=== PATIENT | female | born 1955 | race Caucasian/White ===

== ENCOUNTER → 2016-08-30 | Outpatient (CLI) | payer OTHER | LOC: CT 14:00 | DX: J20.9 Acute bronchitis, unspecified (principal); R93.8 Abnormal findings on diagnostic imaging of other specified body structures; J18.9 Pneumonia, unspecified organism | CPT/HCPCS: 71250 ==

== ENCOUNTER 2020-06-13 17:17 | Observation (INO) | payer MEDICARE ==
[~2020-06-13 17:17] MED LIST: CARAFATE1 GM PO; COZAAR100 MG PO; DAILY MULTIPLE1 EAC1 PO; IBUPROFEN600 MG PO; NORCO 5-325 TA1 EACH PO; NORVASC10 MG PO; PROTONIX40 MG PO; VITAMIN D 40400 UNIT PO; ZOFRAN ODT4 MG PO
[2020-06-13 19:11] LABS: HEMOGLOBIN 14.2 gm/dl (12.3-15.3); RED BLOOD COUNT 4.85 M/UL (4.00-5.10); WHITE BLOOD COUNT 8.2 K/UL (4.5-11.0)
[2020-06-13 19:33] LABS: BUN/CREATININE RATIO 27 (0-10)
[2020-06-14 06:11] LABS: HEMOGLOBIN 12.6 gm/dl (12.3-15.3); WHITE BLOOD COUNT 7.6 K/UL (4.5-11.0)
[2020-06-14 06:25] LABS: RED BLOOD COUNT 4.29 M/UL (4.00-5.10)
[2020-06-14 06:52] LABS: BUN/CREATININE RATIO 26 (0-10)
[2020-06-14] MEDS ORDERED: NITROGLYCERIN0.4 MG SL (11:45)
[2020-06-14] MEDS ORDERED: ECOTRIN81 MG PO (11:45)
== END 2020-06-14 13:47 | disposition home or self-care (01) ==
LOC: ER1 17:17 → CDU 21:42 → MED SURG 4 21:42
PROVIDERS: Physician Assistant Medical; ADMIT Internal Medicine
DX: R07.2 Precordial pain (principal); I10 Essential (primary) hypertension; E78.5 Hyperlipidemia, unspecified; F17.210 Nicotine dependence, cigarettes, uncomplicated; Z88.2 Allergy status to sulfonamides; Z88.8 Allergy status to other drugs, medicaments and biological substances; Z20.822 Contact with and (suspected) exposure to COVID-19
CPT/HCPCS: 36415; 71045; 80048; 80053; 82550; 82553; 83874; 84484; 85025; 85610; 93005; 99285; G0378; U0002

== ENCOUNTER → 2020-07-03 | Outpatient (CLI) | payer MEDICARE ==
[~2020-07-03] MED LIST changes: +ECOTRIN81 MG PO; +NITROGLYCERIN0.4 MG SL
== END ==
LOC: HEART 5 09:03
DX: R06.00 Dyspnea, unspecified (principal); R94.2 Abnormal results of pulmonary function studies; F17.210 Nicotine dependence, cigarettes, uncomplicated
CPT/HCPCS: 94010; 94729

== ENCOUNTER → 2021-04-30 | Outpatient (CLI) | payer MEDICARE | LOC: KOH-I 04-24 13:00 | DX: F17.210 Nicotine dependence, cigarettes, uncomplicated (principal) | CPT/HCPCS: 71271 ==

== ENCOUNTER 2021-12-01 07:59 | Inpatient (IN) | payer MEDICARE ==
[~2021-12-01] VITALS: Ht 167.6 cm; Wt 81.6 kg
[~2021-12-01 07:59] MED LIST changes: +ROXICODONE5 MG PO
[2021-12-01 09:22] LABS: HEMOGLOBIN 10.9 gm/dl (12.3-15.3); RED BLOOD COUNT 4.12 M/UL (4.00-5.10); WHITE BLOOD COUNT 4.6 K/UL (4.5-11.0)
[2021-12-01 09:46] LABS: BUN/CREATININE RATIO 12 (0-10)
[2021-12-01] MEDS ORDERED: ELIQUIS5 MG PO (15:46)
[2021-12-01] MEDS ORDERED: FAMOTIDINE20 MG PO (15:46)
[2021-12-01] MEDS ORDERED: SYMBICORT 80-10.2 GM INH (15:47)
[2021-12-01] MEDS ORDERED: HYDROXYZINE HCL50 MG PO (15:47)
[2021-12-01] MEDS ORDERED: GABAPENTIN400 MG PO (15:47)
[2021-12-01] MEDS ORDERED: SENNA8.6 MG PO (15:55)
[2021-12-02 03:10] LABS: HEMOGLOBIN 10.4 gm/dl (12.3-15.3); RED BLOOD COUNT 3.87 M/UL (4.00-5.10)
[2021-12-02 03:16] LABS: WHITE BLOOD COUNT 2.8 K/UL (4.5-11.0)
[2021-12-02 03:42] LABS: BUN/CREATININE RATIO 17 (0-10)
[2021-12-03 03:27] LABS: HEMOGLOBIN 10.5 gm/dl (12.3-15.3); RED BLOOD COUNT 3.88 M/UL (4.00-5.10)
[2021-12-03 03:28] LABS: WHITE BLOOD COUNT 6.8 K/UL (4.5-11.0)
[2021-12-03 03:45] LABS: BUN/CREATININE RATIO 18 (0-10)
[2021-12-03] MEDS ORDERED: DECADRON6 MG PO (10:54)
[2021-12-03] MEDS ORDERED: LEVOFLOXACIN750 MG PO (10:54)
== END 2021-12-03 18:22 | disposition home or self-care (01) | DRG 177 ==
LOC: ER1 07:59 → CDU 11:03 → M/S 14:33
PROVIDERS: Emergency Medicine; ADMIT Internal Medicine
PROC: 8E0ZXY6 Isolation (ICD-10-PCS; principal; 2021-12-01)
PROC: XW033E5 Introduction of Remdesivir Anti-infective into Peripheral Vein, Percutaneous Approach, New Technology Group 5 (ICD-10-PCS; 2021-12-01)
PROC: 3E0333Z Introduction of Anti-inflammatory into Peripheral Vein, Percutaneous Approach (ICD-10-PCS; 2021-12-01)
DX: U07.1 COVID-19 (principal); J96.01 Acute respiratory failure with hypoxia; D84.9 Immunodeficiency, unspecified; G62.9 Polyneuropathy, unspecified; I10 Essential (primary) hypertension; E78.5 Hyperlipidemia, unspecified; E78.00 Pure hypercholesterolemia, unspecified; Z85.6 Personal history of leukemia; Z82.49 Family history of ischemic heart disease and other diseases of the circulatory system; Z88.8 Allergy status to other drugs, medicaments and biological substances; Z90.49 Acquired absence of other specified parts of digestive tract
CPT/HCPCS: 0240U; 36415; 36600; 71045; 80048; 80053; 81001; 82550; 82553; 82803; 83036; 83605; 83735; 83880; 84439; 84443; 84484; 85025; 86140; 87040; 87086; 93005; 94640; 94664; 94760; 96374; 96375; 99285; J0248; J1100; J1650; J2185; J2543; J7030; J7070